=== PATIENT | male | born 2005 | race Caucasian/White ===

== ENCOUNTER 2025-11-14 14:47 | Outpatient (CLI) | payer BC, SELFPAY ==
[2025-11-14 15:02] LABS: Abs Immature Grans 0.03 10^3/uL (0.0-0.06); HCT 43.2 % (40.0-50.0); HGB 14.2 g/dL (13.5-17.5); Immature Grans % 0.2 %; MCH 29.3 pg (27.0-33.0); MCHC 32.9 % (32.0-36.0); MCV 89 fL (80-95); MPV 10.2 fL (8.0-11.0); Platelet Count 314 10^3/uL (130-400); RBC 4.85 10^6/uL (4.36-5.78); RDW 12.8 % (11.8-14.1); RDW-SD 41.9 fL; WBC 13.55 10^3/uL (4.4-10.8)
[2025-11-14 15:20] LABS: Hemoglobin A1C 5.0 % (<5.7)
[2025-11-14 16:13] LABS: ALT 15 U/L (10-49); AST 22 U/L (<34); Albumin 4.7 g/dL (3.2-5.0); Alkaline Phosphatase 67 U/L (46-116); Anion Gap 10.4 mmol/L (3-11); BUN 12 mg/dL (9-23); Bilirubin, Total 0.5 mg/dL (0.2-1.2); CO2 27.6 mmol/L (20.0-31.0); Calcium 9.5 mg/dL (8.3-10.6); Chloride 104 mmol/L (98-107); Cholesterol 149 mg/dL (<200); Glucose 82 mg/dL (74-106); HDL Cholesterol 47 mg/dL (>or=40); Potassium 4.1 mmol/L (3.5-5.1); Sodium 142 mmol/L (136-145); TSH (W/Ref FT4) 1.81 uIU/mL (0.55-4.78); Total Protein 7.8 g/dL (5.7-8.2)
[2025-11-14 16:41] LABS: Vitamin B12 545 pg/mL (211-911)
[2025-11-14 23:39] LABS: HIV-1/2 Ag & Ab Screen Negative (Negative)
[2025-11-14 23:42] LABS: HBs Antibody, Quant <3.1 mIU/mL (See Note); Hepatitis B Surface Antigen Negative (Negative)
[2025-11-14 23:46] LABS: Hepatitis C Ab w Rflx HCV PCR Negative (Negative)
== END 2025-11-14 14:48 | disposition home or self-care (01) ==
LOC: LBO 14:51
PROVIDERS: PCP Nurse Practitioner Family; Visit Provider Nurse Practitioner Family
DX: Z11.4 Encounter for screening for human immunodeficiency virus [HIV] (principal); Z00.00 Encounter for general adult medical examination without abnormal findings; Z11.59 Encounter for screening for other viral diseases
CPT/HCPCS: 36415; 80053; 80061; 86704; 86706; 86803; 87340; 87389; 82607; 83036; 84443; 85025